=== PATIENT | male | born 1965 | race Caucasian/White ===

== ENCOUNTER 2018-06-06 10:57 | Day surgery (SDC) | payer OTHER ==
[~2018-06-06] VITALS: Ht 190.5 cm; Wt 102.6 kg
[~2018-06-06 10:57] MED LIST: BUPIVACAINE/PF-EPI 0.5% 1:200K ONE; IBUP-1221 PO
[2018-06-06 11:41] VITALS: BP 101/61
[2018-06-06] MEDS ORDERED: LACTATED RINGERS 1,000 ML IV SCH (11:43)
[2018-06-06] MEDS ORDERED: SAW/1TAB2 PO (11:44)
[2018-06-06] MEDS ORDERED: LIDOCAINE-MPF 1%, 2ML ONE (11:48)
[2018-06-06] MEDS ORDERED: LIDOCAINE-MPF 1%, 2ML INFIL ONE (12:00)
[2018-06-06] MEDS ORDERED: EPHEDRINE 50 MG/ML, 1ML ONE (15:20)
[2018-06-06] MEDS ORDERED: MIDAZOLAM 1 MG/ML, 2ML ONE ×2 (15:22→16:39)
[2018-06-06] MEDS ORDERED: FENTANYL PF 100 MCG/2ML ONE ×2 (15:23→16:34)
[2018-06-06] MEDS ORDERED: DEXAMETHASONE 4 MG/ML, 1ML ONE (15:24)
[2018-06-06] MEDS ORDERED: ONDANSETRON 2MG/ML, 2ML ONE (15:24)
[2018-06-06] MEDS ORDERED: LIDOCAINE-MPF 2% ,5ML ONE (15:24)
[2018-06-06] MEDS ORDERED: PROPOFOL 10 MG/ML, 20ML ONE (15:24)
[2018-06-06] MEDS ORDERED: METOCLOPRAMIDE 5 MG/ML, 2ML ONE (15:24)
[2018-06-06] MEDS ORDERED: ROCURONIUM 10MG/ML,5ML ONE (15:26)
[2018-06-06] MEDS ORDERED: CEFAZOLIN 1,000 MG ONE ×2 (15:39)
[2018-06-06] MEDS ORDERED: GLYCOPYRROLATE 0.2MG/1ML, 5ML ONE (16:10)
[2018-06-06] MEDS ORDERED: NEOSTIGMINE 1 MG/ML, 10ML ONE (16:10)
[2018-06-06] MEDS ORDERED: MEPERIDINE/PF 50 MG/ML ONE (16:24)
[2018-06-06] MEDS ORDERED: OXYcodone 5 MG/5 ML ORAL.SOL UDC PO PRN (16:30)
[2018-06-06] MEDS ORDERED: HYDROmorphone 1 MG/ML, 1ML IV PRN (16:30)
[2018-06-06] MEDS ORDERED: MIDAZOLAM 1 MG/ML, 2ML IV PRN (16:30)
[2018-06-06] MEDS ORDERED: LABETALOL 5MG/ML, 20ML IV PRN (16:30)
[2018-06-06] MEDS ORDERED: ONDANSETRON 2MG/ML, 2ML IVPush PRN (16:30)
[2018-06-06] MEDS: MEPERIDINE/PF 25MG/0.5ML IVPush PRN ×2 (16:30→16:43)
[2018-06-06] MEDS: FENTANYL PF 100 MCG/2ML IV PRN ×2 (16:37→16:49)
[2018-06-06] MEDS ORDERED: HYDROmorphone 2 MG/ML, 1ML ONE (16:44)
[2018-06-06] MEDS ORDERED: OXYcodone 5 MG/5 ML ORAL.SOL UDC ONE (16:58)
== END 2018-06-06 18:35 | disposition home or self-care (01) ==
LOC: OUT 10:57
PROVIDERS: ATTEND Surgery
DX: K40.90 Unilateral inguinal hernia, without obstruction or gangrene, not specified as recurrent (principal); Z98.890 Other specified postprocedural states; Z88.0 Allergy status to penicillin
CPT/HCPCS: 49650; C1727; C1781; J0690; J1100; J1170; J2175; J2250; J2405; J2704; J2710; J2765; J3010; J3490; J7120